=== PATIENT | female | born 1990 | race Caucasian/White ===

== ENCOUNTER 2022-03-26 09:38 | Emergency (ER) | payer OTHER ==
[~2022-03-26] VITALS: Ht 160 cm; Wt 48.1 kg
[2022-03-26] MEDS ORDERED: ONDANSETRON 4 MG/2 ML VIAL ONE (10:28)
[2022-03-26] MEDS ORDERED: ONDANSETRON 4 MG/2 ML VIAL IV ONE (10:30)
[2022-03-26] MEDS ORDERED: IV NORMAL SALINE 1000 ML BAG IV ONE (10:30)
[2022-03-26 10:43] LABS: HEMATOCRIT 38.3 % (31.2-41.9); MEAN CORPUSCULAR HEMOGLOBIN 30.8 uug (24.7-32.8); MEAN CORPUSCULAR VOLUME 91.4 fL (75.5-95.3); PLATELET COUNT (AUTO) 186 K/uL (179-408)
[2022-03-26 10:48] LABS: *BILIRUBIN,URIN NEGATIVE (NEGATIVE); *CLARITY,URINE CLEAR (CLEAR); *COLOR,URINE YELLOW (YELLOW); *KETONES,URINE NEGATIVE (NEGATIVE); *URINE HCG, QUAL NEG (NEGATIVE); *UROBILINOGEN,URINE 0.2 E.U./dl (NORMAL); LEUKOCYTE ESTERASE ,URINE NEGATIVE (NEGATIVE); NITRITE, URINE NEGATIVE (NEGATIVE); PH,URINE 6.5 (5.0-8.0); UGLUCOSE NEGATIVE (NEGATIVE)
[2022-03-26 10:53] LABS: CREATININE 0.8 mg/dL (0.6-1.3); POTASSIUM 3.8 mmol/L (3.5-5.1)
[2022-03-26 10:55] LABS: *BLOOD, URINE TRACE (NEGATIVE)
[2022-03-26 10:59] LABS: BILIRUBIN,TOTAL 0.4 mg/dL (0.2-1.0)
[2022-03-26] MEDS ORDERED: SWABABLE VALVE TRANSFER SET EA MC ONE (11:35)
[2022-03-26] MEDS ORDERED: IOHEXOL 300MG/ML 100 ML INFUS..BTL ONE (11:35)
[2022-03-26] MEDS ORDERED: IV NORMAL SALINE 250 ML IV ONE (11:36)
[2022-03-26] MEDS ORDERED: MAG HYDROX/AL HYDROX/SIMETH 30 ML LIQUID UDC PO ONE (12:15)
[2022-03-26] MEDS ORDERED: LIDOCAINE VISCUS 2% 15 ML UDC MM ONE (12:15)
[2022-03-26] MEDS ORDERED: KETOROLAC TROMETHAMINE 15 MG INJ IVP ONE (12:15)
[2022-03-26] MEDS ORDERED: LIDOCAINE VISCUS 2% 15 ML UDC ONE (12:21)
[2022-03-26] MEDS ORDERED: KETOROLAC TROMETHAMINE 15 MG INJ ONE (12:21)
[2022-03-26] MEDS ORDERED: MAG HYDROX/AL HYDROX/SIMETH 30 ML LIQUID UDC ONE (12:21)
--- NOTE | 2022-03-26 12:30 | NUR ---
Patient discharged to home in stable condition. Written and verbal after care instructions given. Patient verbalizes understanding of instructions. Stressed follow up or return to ER for worsening s/s.
--- NOTE | 2022-03-26 12:30 | NUR ---
IV removed. Catheter intact and site benign. Pressure and 4x4 gauze applied to site. No bleeding noted.
[2022-03-26 13:00] LABS: BACTERIA,URINE FEW /HPF (NONE SEEN); RBC,URINE 0-3 /HPF (0-3); SQUAMOUS EPITHELIAL CELL,UR MODERATE /HPF (NONE SEEN); WBC,URINE 0-3 /HPF (0-3)
== END 2022-03-26 12:57 | disposition home or self-care (01) ==
LOC: ER 09:38
DX: R10.32 Left lower quadrant pain (principal); D18.03 Hemangioma of intra-abdominal structures; N83.201 Unspecified ovarian cyst, right side
CPT/HCPCS: 99285; 74177; 96374; 76856; 96361; 96375; 80053; 81001; 84703; 85025; 36415; J1885; J2405; Q9967; J7040; A4663